=== PATIENT | male | born 1970 | race Caucasian/White ===

== ENCOUNTER 2017-12-05 15:26 | Emergency (ER) | payer OTHER ==
[~2017-12-05] VITALS: Ht 177.8 cm; Wt 86.2 kg
[2017-12-05 16:00] LABS: ABSOLUTE BASOPHIL COUNT 0 /CUMM (0.0-0.2); ABSOLUTE EOSINOPHIL COUNT 0 /CUMM (0.0-0.7); ABSOLUTE GRANULOCYTE CT 4.8 /CUMM (1.4-6.5); ABSOLUTE LYMPH COUNT 1.4 /CUMM (1.2-3.4); ABSOLUTE MONOCYTE COUNT 0.6 /CUMM (0.10-0.60); BASOPHIL % 0.3 % (0.0-2.0); EOSINOPHIL % 0.4 % (0-5); GRANULOCYTE % 69.7 % (42.2-75.2); HEMATOCRIT 45.2 % (42-52); MEAN CORPUSCULAR HGB 29.3 PG (27.0-31.0); MEAN CORPUSCULAR HGB CONC 33.4 G/DL (33.0-37.0); MEAN CORPUSCULAR VOLUME 87.7 FL (80.0-94.0); MEAN PLATELET VOLUME 6.9 FL (7.4-10.4); PLATELET COUNT 343 /CUMM (130-400); RED BLOOD CELL CT 5.15 /CUMM (4.70-6.10); WHITE BLOOD CELL COUNT 6.9 /CUMM (4.8-10.8)
--- NOTE | 2017-12-05 17:21 | CT SCAN REPORT ---
EXAMINATION: CT ABDOMEN AND PELVIS WITH CONTRAST CLINICAL INFORMATION: Upper abdominal pain. Nausea/vomiting/diarrhea. Presumptive diagnosis: Pancreatitis, colitis, cholecystitis. COMPARISON: None TECHNIQUE: Multidetector volumetric imaging was performed of the abdomen and pelvis following IV administration of 95 mL of Optiray 320 intravenous contrast. Sagittal and coronal reformatted images were obtained on the technologist's workstation. DLP: 305 mGy-cm FINDINGS: LUNG BASES: Minimal dependent atelectasis. LIVER, GALLBLADDER, AND BILIARY TREE: Relative hypoattenuation of the hepatic parenchyma is consistent with steatosis. No focal lesions or biliary ductal dilatation. Liver is normal in size and contour. The gallbladder is contracted with no evidence of radiopaque gallstones, gallbladder wall thickening, or obvious pericholecystic inflammatory changes. PANCREAS: Unremarkable. SPLEEN: Unremarkable. ADRENAL GLANDS: Unremarkable. KIDNEYS AND URETERS: The kidneys are normal in size, shape, and attenuation. No hydronephrosis, hydroureter, or calculi seen. No perinephric stranding. BLADDER: Unremarkable. GASTROINTESTINAL TRACT: Stomach, small bowel, and colon are normal in caliber. The colon is largely decompressed. There is mild generalized colonic wall thickening with intramural low attenuation. No pericolonic fat stranding. No evidence of perforation or abscess.. Appendix is normal. No intraperitoneal free fluid or free air. ABDOMINAL WALL: No significant hernia is appreciated. LYMPH NODES: Normal. VASCULAR: Mild calcific atherosclerosis is present in the abdominal aorta. No aneurysmal dilatation. PELVIC VISCERA: Central calcifications are present in the prostate gland. OSSEOUS STRUCTURES: Mild degenerative disc disease is present in the lumbar spine. No acute osseous abnormalities. IMPRESSION: Mild diffuse colonic wall thickening and mural stratification without any surrounding pericolonic inflammation. This is nonspecific and could be due to a chronic colonic inflammatory process or very mild acute colitis. No evidence of pancreatitis or cholecystitis.
[2017-12-05] MEDS ORDERED: ZOFRAN ODT4 M1 SL (19:03)
[2017-12-05] MEDS ORDERED: DICYCLOMINE HCL10 M1 PO (19:03)
--- NOTE | 2017-12-05 19:04 | ED GI/GU/ABDOMINAL COMPLAINT ---
History of Present Illness General Chief Complaint: Nausea, Vomiting, Diarrhea Stated Complaint: +NVD X1 WEEK, SENA, DIZZY, "IM DEHYDRATED" Source: patient Exam Limitations: no limitations Vital Signs & Intake/Output Vital Signs & Intake/Output Vital Signs Date Time Temp Pulse Resp B/P B/P Pulse O2 O2 Flow FiO2 Mean Ox Delivery Rate 12/05 1921 98.2 82 16 140/80 98 ED Intake and Output 12/06 0000 12/05 1200 Intake Total 0 Output Total Balance 0 Intake, Oral 0 Patient 190 lb Weight Weight Reported by Patient Measurement Method Allergies Coded Allergies: Penicillins (Severe, HIVES 12/05/17) Reconcile Medications Dicyclomine HCl 10 MG CAPSULE 1 CAP PO TID PRN abdominal pain Ondansetron (Zofran Odt) 4 MG TAB.RAPDIS 1 TAB SL TID PRN nausea Triage Note: 47 Y/O MALE C/O N/V/D X 1 WEEK; REPORTS UNABLE TO TOLERATE ANY PO INTAKE OTHER THAN WATER. REPORTS HX HIATAL HERNIA AND HERNIA REPAIR; UNABLE TO STATE IF THESE SYMPTOMS FEEL SIMILIAR BUT STATES N/V/D GET WORSE AT NIGHT. DENIES ABDOMINAL PAIN. DENIES FEVERS. DENIES URINARY SYMPTOMS. AFEBRILE Triage Nurses Notes Reviewed? yes Onset: Abrupt Duration: week(s): (1), changing over time, continues in ED, getting worse Timing: single episode today Quality/Severity: cramping Severity Numbers: 5 Location: generalized abdomen Radiation: no radiation Activities at Onset: none Prior Abdominal Problems: none Past Sexual History: Unobtainable at this time No Modifying Factors: none HPI: 47-year-old male history of hiatal hernia and GERD presents for evaluation of nausea vomiting diarrhea and abdominal pain. Patient states symptoms have been going on for 1 week and been persistent. Reports watery diarrhea without blood. No recent antibiotics recent travel or sick contacts. No fevers. He reports that the abdominal pain is located diffusely in his abdomen does not radiate described as cramping. He reports that the nausea and vomiting is triggered by laying down and improves when he sits up. Symptoms are also worse with eating. He reports a history of hiatal hernia and gerd. No recent abdominal surgeries. No chest pain no shortness of breath no lower extremity edema. He's been taking pantoprazole without much improvement. (Andrey Ocampo) Past History Travel History Traveled to [place] past 21 day No Medical History Any Pertinent Medical History? see below for history Neurological: NONE EENT: NONE Cardiovascular: NONE Respiratory: NONE Gastrointestinal: HIATAL HERNIA Hepatic: NONE Renal: NONE Musculoskeletal: NONE Psychiatric: NONE Endocrine: NONE Blood Disorders: NONE Cancer(s): NONE SAW MAKER/Reproductive: NONE Surgical History Surgical History: non-contributory Psychosocial History What is your primary language Liberian Tobacco Use: Quit >30 days ago Family History Hx Contributory? No (Andrey Ocampo) Review of Systems Review of Systems Constitutional: Reports: no symptoms. EENTM: Reports: no symptoms. Respiratory: Reports: no symptoms. Cardiovascular: Reports: no symptoms. GI: Reports: see HPI, abdominal pain, diarrhea, nausea, vomiting. Genitourinary: Reports: no symptoms. Musculoskeletal: Reports: no symptoms. Skin: Reports: no symptoms. Neurological/Psychological: Reports: no symptoms. Hematologic/Endocrine: Reports: no symptoms. Immunologic/Allergic: Reports: no symptoms. All Other Systems: Reviewed and Negative (Andrey Ocampo) Physical Exam Physical Exam General Appearance: well developed/nourished, no apparent distress, alert, awake Head: atraumatic, normal appearance Eyes: Bilateral: normal appearance, PERRL, EOMI. Ears, Nose, Throat, Mouth: moist mucous membrane Neck: normal inspection, supple, full range of motion Respiratory: normal breath sounds, chest non-tender, no respiratory distress, lungs clear Cardiovascular: regular rate/rhythm, normal peripheral pulses Peripheral Pulses: 2+ radial (R), 2+ radial (L) Gastrointestinal: normal bowel sounds, soft, no organomegaly, tenderness (mild diffuse ) Back: normal inspection, normal range of motion, no vertebral tenderness Extremities: normal range of motion Neurologic/Psych: no motor/sensory deficits, awake, alert, oriented x 3, normal gait Skin: intact, normal color, warm/dry Core Measures ACS in differential dx? No Sepsis Present: No Sepsis Focused Exam Completed? No (Andrey Ocampo) Progress Differential Diagnosis: appendicitis, biliary colic, bowel obstruction, colon cancer, cholecystitis, diverticulitis, gastritis, hernia, inflamm bowel dis, pancreatitis, peptic ulcer, PUD/GERD, SBO, ureterolithiasis, urinary retention, urethritis, UTI/pyelo Plan of Care: Orders Procedure Date/time Status CULTURE,STOOL 12/05 1844 Active C.DIFFICILE 12/05 1844 Active Microbiology 12/05 1845 STOOL: Clostridium difficile Toxin A & B - RES 12/05 1845 STOOL: Stool Culture - RES 12/05 1844 STOOL: Cryptosporidium Antigen - CAN Cancelled: QNS FOR TESTING - RECOLLECT NOT REC'D - PATIENT DEPARTED ER 12/05 1844 STOOL: Giardia Antigen (JACKY) - CAN Cancelled: QNS FOR TESTING - RECOLLECT NOT REC'D - PATIENT DEPARTED ER Patient is here with mild diffuse abdominal pain nausea vomiting and diarrhea that have been going on for one week. No blood in the stool. No fevers no chest pain or shortness of breath. Vital signs are stable. On exam is mild diffuse abdominal tenderness. Lab CT scan ordered. Stool was sent for cultures C. difficile over and parasites. Patient was medicated with fluids Zofran and Protonix. Blood work is not showing any acute findings. CT scan shows mild colonic wall thickening consistent with a mild colitis. Patient has no elevated white count and no fever no blood in the stool. Will follow-up on cultures to see if patient needs antibiotics. Patient was given gastroenterology follow-up for a colonoscopy. Suspect this is inflammatory bowel disease versus gastroenteritis versus GERD. able tolerate fluids here. He is feeling better. Patient will be given a prescription for Bentyl and Zofran. Discussed return precautions in detail. Patient agrees the plan Diagnostic Imaging: Viewed by Me: CT Scan. Discussed w/RAD: CT Scan. Radiology Impression: PATIENT: ANTONINA MARISCAL PRESENT AGE: 47 PATIENT ACCOUNT NO: [id number] : 71 LOCATION: [facility] ORDERING PHYSICIAN: Andrey AARON SERVICE DATE: 12/05/17 EXAM TYPE: CAT - CT ABD & PELVIS W IV CONTRAST EXAMINATION: CT ABDOMEN AND PELVIS WITH CONTRAST CLINICAL INFORMATION: Upper abdominal pain. Nausea/vomiting/diarrhea. Presumptive diagnosis: Pancreatitis, colitis, cholecystitis. COMPARISON: None TECHNIQUE: Multidetector volumetric imaging was performed of the abdomen and pelvis following IV administration of 95 mL of Optiray 320 intravenous contrast. Sagittal and coronal reformatted images were obtained on the technologist's workstation. DLP: 305 mGy-cm FINDINGS: LUNG BASES: Minimal dependent atelectasis. LIVER, GALLBLADDER, AND BILIARY TREE: Relative hypoattenuation of the hepatic parenchyma is consistent with steatosis. No focal lesions or biliary ductal dilatation. Liver is normal in size and contour. The gallbladder is contracted with no evidence of radiopaque gallstones, gallbladder wall thickening, or obvious pericholecystic inflammatory changes. PANCREAS: Unremarkable. SPLEEN: Unremarkable. ADRENAL GLANDS: Unremarkable. KIDNEYS AND URETERS: The kidneys are normal in size, shape, and attenuation. No hydronephrosis, hydroureter, or calculi seen. No perinephric stranding. BLADDER: Unremarkable. GASTROINTESTINAL TRACT: Stomach, small bowel, and colon are normal in caliber. The colon is largely decompressed. There is mild generalized colonic wall thickening with intramural low attenuation. No pericolonic fat stranding. No evidence of perforation or abscess.. Appendix is normal. No intraperitoneal free fluid or free air. ABDOMINAL WALL: No significant hernia is appreciated. LYMPH NODES: Normal. VASCULAR: Mild calcific atherosclerosis is present in the abdominal aorta. No aneurysmal dilatation. PELVIC VISCERA: Central calcifications are present in the prostate gland. OSSEOUS STRUCTURES: Mild degenerative disc disease is present in the lumbar spine. No acute osseous abnormalities. IMPRESSION: Mild diffuse colonic wall thickening and mural stratification without any surrounding pericolonic inflammation. This is nonspecific and could be due to a chronic colonic inflammatory process or very mild acute colitis. No evidence of pancreatitis or cholecystitis. DICTATED BY: Óscar Mead MD DATE/TIME DICTATED:12/05/171705 MAKE UP OPERATOR HELPER:JEREMY DATE/TIME TRANSCRIBED:12/05/171705 CONFIDENTIAL, DO NOT COPY WITHOUT APPROPRIATE AUTHORIZATION. <Electronically signed in Other Vendor System> SIGNED BY: Óscar Mead MD 12/05/17 1721 Initial ED EKG: none (Louis AARON,Andrey) Departure Departure Disposition: HOME OR SELF CARE Condition: Stable Clinical Impression Primary Impression: Colitis Referrals: Monie CHAPARRO,Eder Asencio (PCP/Family) Chip Baird MD Additional Instructions: Rest and drink plenty of fluids. Eat high fiber foods. Zofran for nausea and Bentyl for abdominal pain. Follow-up with her aemt this coming week. Monitor symptoms closely return with fever worsening pain blood in her stool or any other concerns. Departure Forms: Customer Survey General Discharge Information Prescriptions: Current Visit Scripts Dicyclomine HCl 1 CAP PO TID PRN abdominal pain #30 CAP Ondansetron (Zofran Odt) 1 TAB SL TID PRN nausea #15 TAB (Andrey Ocampo) PA/HOOK TENDER Co-Sign Statement Statement: ED Attending supervision documentation- [] I saw and evaluated the patient. I have also reviewed all the pertinent lab results and diagnostic results. I agree with the findings and the plan of care as documented in the PA's/HOOK TENDER's documentation. [x] I have reviewed the ED Record and agree with the PA's/HOOK TENDER's documentation. [] Additions or exceptions (if any) to the PAs/HOOK TENDER's note and plan are summarized below: [] (Saran CHAPARRO,Boubacar Hare)
[2017-12-05 19:22] VITALS: BP 140/80
== END 2017-12-05 19:25 ==
LOC: ERH 15:26
PROVIDERS: Physician Assistant Medical
DX: K52.9 Noninfective gastroenteritis and colitis, unspecified (principal)
CPT/HCPCS: 74177; 87015; 87045; 87328; 87329; 87899; 87899-59; 96374; 96375; J2405